=== PATIENT | female | born 1970 | race Caucasian/White ===

== ENCOUNTER 2022-06-11 09:00 | Outpatient (CLI) | payer SELFPAY | END 2022-06-11 23:59 | disposition home or self-care (01) | LOC: LAB.S 09:00 | PROVIDERS: ATTEND Physician Assistant Medical | DX: R30.0 Dysuria (principal) | CPT/HCPCS: 87086 ==

== ENCOUNTER 2022-06-11 11:25 | Emergency (ER) | payer MEDICAID, OTHER ==
[2022-06-11 11:49] LABS: BASOPHILS % (AUTO) 0.2 %; EOSINOPHILS # (AUTO) 0.1 10^3/uL (0.0-0.7); EOSINOPHILS % (AUTO) 0.5 %; HCT - HEMATOCRIT 46.2 % (37.0-47.0); LYMPHOCYTES # (AUTO) 1.5 10^3/uL (1.5-3.5); LYMPHOCYTES % (AUTO) 11.4 %; MEAN CORPUSCULAR HEMOGLOBIN 31.6 pg (27.0-31.0); MEAN CORPUSCULAR HGB CONC 32.5 g/dL (32.0-36.0); MEAN CORPUSCULAR VOLUME 97.3 fL (81.0-99.0); MEAN PLATELET VOLUME 8.4 fL (7.9-10.8); MONOCYTES # (AUTO) 0.7 10^3/uL (0.0-1.0); MONOCYTES % (AUTO) 5.1 %; NEUTROPHILS # (AUTO) 11.1 10^3/uL (1.5-6.6); NEUTROPHILS % (AUTO) 82.5 %; PLT - PLATELET COUNT 408 10^3/uL (130-450); RED BLOOD COUNT 4.75 10^6/uL (4.20-5.40); WHITE BLOOD COUNT 13.4 x10^3/uL (4.8-10.8)
[2022-06-11 11:56] LABS: BILIRUBIN,URINE NEGATIVE (NEGATIVE); CLARITY,URINE CLEAR (CLEAR); GLUCOSE, URINE (UA) NEGATIVE (NEGATIVE); KETONES,URINE (UA) NEGATIVE (NEGATIVE); LEUKOCYTE ESTERASE, URINE NEGATIVE (NEGATIVE); NITRITE,URINE NEGATIVE (NEGATIVE); OCCULT BLOOD,URINE NEGATIVE (NEGATIVE); PROTEIN,URINE NEGATIVE (NEGATIVE); UROBILINOGEN,URINE 0.2 (NORMAL) E.U./dL (NORMAL)
[2022-06-11 11:58] LABS: HCG UR QUAL NEGATIVE
[2022-06-11 12:01] LABS: ALBUMIN 4.1 g/dL (3.2-5.5); BILIRUBIN,TOTAL 0.7 mg/dL (0.2-1.0); CALCIUM 9.4 mg/dL (8.5-10.3); CREATININE 0.8 mg/dL (0.4-1.0); TOTAL PROTEIN 8.2 g/dL (6.7-8.2)
[2022-06-11] MEDS ORDERED: HYDROmorphone 1 MG/ML CARPUJECT IVP STA (12:13)
--- NOTE | 2022-06-11 12:16 | ED Physician Documentation ---
PD HPI ABD PAIN - Stated complaint Stated Complaint: LOWER ABD PX - Chief complaint Chief Complaint: Abd Pain - History obtained from History obtained from: Patient - Additional information Additional information: This is a forrest 51-year-old woman with history of IBS and tubal ligation who presents with abdominal pain. It started about 2 weeks ago and lasted for 5 days. It was a severe cramping pain in the pelvis across both sides. It went away for about a week but recurred last night with a subjective fever. Pain is sharp and unrelenting. It is not associated with any changes in her bowel movements or nausea. She is never had this before. Never had a colonoscopy. Review of Systems Ten Systems: 10 systems reviewed and negative Constitutional: reports: Fever GI: reports: Abdominal Pain. 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 ligation - Present Medications Home Medications: Ambulatory Orders Medication Instructions Recorded Confirmed Ciprofloxacin HCl [Cipro] 500 mg PO BID #14 tablet 06/11/22 HYDROcod/ACETAM 5/325 [Iaeger 5/325] 1 - 2 tab PO Q6H PRN #15 tablet 06/11/22 metroNIDAZOLE [Flagyl] 500 mg PO TID 7 Days #21 tablet 06/11/22 - Allergies Allergies/Adverse Reactions: Allergies Allergy/AdvReac Type Severity Reaction Status Date / Time No Known Drug Allergies Allergy Verified 06/11/22 11:35 - Social History Does the pt smoke?: No Smoking Status: Never smoker Does the pt drink ETOH?: Yes Does the pt have substance abuse?: Yes Substance Use and Type: Marijuana - Immunizations Immunizations are current?: No Immunizations: TDAP >10years/unknown - POLST Patient has POLST: No PD ED PE NORMAL - Vitals Vital signs reviewed: Yes - General General: Alert and oriented X 3, No acute distress - HEENT HEENT: PERRL, EOMI - Neck Neck: Supple, no meningeal sign, No bony TTP - Cardiac Cardiac: RRR, No murmur - Respiratory Respiratory: No respiratory distress, Clear bilaterally - Abdomen Abdomen: Soft, Other (Modest tenderness in both lower abdominal quadrants without surgical signs, slightly hyperactive bowel sounds.) - Back Back: No CVA TTP, No spinal TTP - Derm Derm: Normal color, Warm and dry - Extremities Extremities: No edema, No calf tenderness / cord - Neuro Neuro: Alert and oriented X 3, Normal speech Results - Vitals Vitals: Vital Signs - 24 hr 06/11/22 06/11/22 11:31 13:00 Temperature 36.5 C Heart Rate 86 85 Respiratory 16 16 Rate Blood Pressure 138/86 H 132/89 H O2 Saturation 100 99 Oxygen O2 Source Room air - Labs Labs: Laboratory Tests 06/11/22 06/11/22 06/11/22 11:44 11:44 11:48 WBC 13.4 H RBC 4.75 Hgb 15.0 Hct 46.2 MCV 97.3 MCH 31.6 H MCHC 32.5 RDW 11.0 L Plt Count 408 MPV 8.4 Neut # (Auto) 11.1 H Lymph # (Auto) 1.5 [place] # (Auto) 0.7 Eos # (Auto) 0.1 Baso # (Auto) 0.0 Absolute Nucleated RBC 0.00 Nucleated RBC % 0.0 Sodium 137 Potassium 4.0 Chloride 99 L Carbon Dioxide 28 Anion Gap 10.0 BUN 10 Creatinine 0.8 Estimated GFR (MDRD) 75 L Glucose 116 H Calcium 9.4 Total Bilirubin 0.7 AST 18 ALT 18 Alkaline Phosphatase 55 Total Protein 8.2 Albumin 4.1 Globulin 4.1 Albumin/Globulin Ratio 1.0 Lipase 32 Urine Color YELLOW Urine Clarity CLEAR Urine pH 6.0 Ur Specific [place] 1.025 Urine Protein NEGATIVE Urine Glucose (UA) NEGATIVE Urine Ketones NEGATIVE Urine Occult Blood NEGATIVE Urine Nitrite NEGATIVE Urine Bilirubin NEGATIVE Urine Urobilinogen 0.2 (NORMAL) Ur Leukocyte Esterase NEGATIVE Ur Microscopic Review NOT INDICATED Urine Culture Comments NOT INDICATED Urine HCG, Qual NEGATIVE PD Medical Decision Making - ED course ED course: 51-year-old woman presents with recurrent pelvic pain over the course of 2 weeks with significant tenderness, found to have severe diverticulitis on CT and treated with Cipro and Flagyl for same. Discussed need for follow-up colonoscopy as she has never had 1. Departure - Departure Disposition: 01 Home, Self Care Clinical Impression: Diverticulitis of gastrointestinal tract Condition: Good Record reviewed to determine appropriate education?: Yes Instructions: Diet Low Residue, ED Diverticulitis Prescriptions: Ciprofloxacin HCl [Cipro] 500 mg PO BID #14 tablet metroNIDAZOLE [Flagyl] 500 mg PO TID 7 Days #21 tablet HYDROcod/ACETAM 5/325 [Iaeger 5/325] 1 - 2 tab PO Q6H PRN #15 tablet PRN Reason: Pain Comments: I sent your prescriptions electronically to [facility] in [place]. As discussed you have a severe case of diverticulitis, I want you to do a clear liquid diet for the next 24 hours, after that a low residue diet as outlined in the packet. Once you have signed up for health insurance it is imperative to follow-up with your primary care physician, imperative to have a colonoscopy, but your bowel needs to heal first so no sooner than 6 to 8 weeks from now. I am prescribing a short course of narcotic pain medication for you. These are potentially dangerous and addictive medications that should be used carefully. These medications may constipate you. Take an vdyn-vqe-kvmlran stool softener (docusate) twice daily with plenty of water while taking these medications. If you go 24 hours without a bowel movement, take fqkc-[id number] miralax, per package instructions. Do not drink or drive while taking these medications. If you received narcotic or sedating medications while in the emergency department, do not drive for 24 hours. Store this medication in a safe, secure place and out of reach of children. It is a violation of federal law to give or sell this medication to another person or to use in a manner other than prescribed. The ED will not refill narcotic prescriptions, including prescriptions lost or stolen. To dispose of unwanted medications: 1. [facility] at [address] [facility] in [place] has a medication drop box. They accept prescription medications (in pill form) Monday through Monday 9:00 a.m. to 5:00 p.m. 2. [facility] [employer] accepts prescription medications (in pill form only) for disposal year round. Call for more information. 3. Contact the [facility] for the next [facility] sponsored prescription drug collection event. , [phone], or [phone]; Note that many narcotic pain relievers also contain Tylenol/acetaminophen. Please ensure that your total dose of acetaminophen from all sources does not exceed 3 g (3000 mg) per day. Discharge Date/Time: 06/11/22 13:27
[2022-06-11] MEDS ORDERED: iohexoL-300 100 ML VIAL ONE (12:17)
[2022-06-11] MEDS ORDERED: iohexoL-300 100 ML VIAL IVP ONE (12:47)
--- NOTE | 2022-06-11 13:02 | CT Report ---
PROCEDURE: ABDOMEN/PELVIS W INDICATIONS: IV only, low abd pain CONTRAST: 100mL [id number] TECHNIQUE: After the administration of contrast, 5 mm thick sections acquired from the diaphragms to the sym physis. 5 mm thick coronal and sagittal reformats were acquired. For radiation dose reduction, the following was used: automated exposure control, adjustment of mA and/or kV according to patient size . COMPARISON: None. FINDINGS: Image quality: Good Lower chest: Suspected basal scarring/atelectasis. Solid organs: The liver is unremarkable. Gallbladder is unremarkable. No pathologic dilation of the b iliary tree or pancreatic duct. No splenomegaly. No adrenal nodules. No hydronephrosis. Vessels and lymph nodes: No abdominal aortic aneurysm. The main portal vein appears patent. No pathol ogic adenopathy by size criteria. Bowel and peritoneum: No evidence of acute bowel obstruction. The terminal ileum appears within ric l limits. Moderate to severe thickening and inflammatory changes to sigmoid colon without a drainable abscess. Colonic diverticula. Normal appendix. Small amount of probably reactive peritoneal fluid.Th ere is a focally inflamed diverticulum at the undersurface Body wall: Small fat-containing umbilical hernia Pelvis: Underdistended bladder. Reproductive organs overall appear physiologic, but not well evaluate d on CT. Bones: No acute or suspicious osseous abnormality. IMPRESSION: Moderate to severe sigmoid inflammatory changes likely due to diverticulitis with possible superimpos ed colitis. Degree of wall thickening is significant and correlation with any prior or future colonos copy results is recommended. Other incidental findings above. Reviewed by: Carrillo Moncada MD on 06/11/2022 12:01 PM [facility] Approved by: Carrillo Moncada MD on 06/11/2022 12:01 PM [facility] Station ID: [id number]
[2022-06-11] MEDS ORDERED: CIPROFLOXACIN 250 MG TABLET PO STA (13:10)
[2022-06-11] MEDS ORDERED: metroNIDAZOLE 250 MG TABLET PO STA (13:10)
[2022-06-11 13:16] VITALS: BP 132/89
== END 2022-06-11 13:27 | disposition home or self-care (01) ==
LOC: ED 11:25
DX: K57.92 Diverticulitis of intestine, part unspecified, without perforation or abscess without bleeding (principal); R30.0 Dysuria
CPT/HCPCS: 36415; 74177; 80053; 81003; 81025; 83690; 85025; 87086; 96374; 99284; A9270; J1170; Q9967; 81001